=== PATIENT | male | born 1990 | race Caucasian/White ===

== ENCOUNTER 2021-01-15 08:21 | Emergency (ER) | payer BC ==
[~2021-01-15] VITALS: Ht 172.7 cm; Wt 111.0 kg
[2021-01-15 11:33] VITALS: BP 151/101
== END 2021-01-15 11:30 | disposition home or self-care (01) ==
LOC: ER 08:23
DX: T67.5XXA Heat exhaustion, unspecified, initial encounter (principal); R42 Dizziness and giddiness; R06.02 Shortness of breath; R20.0 Anesthesia of skin; X58.XXXA Exposure to other specified factors, initial encounter; Y93.89 Activity, other specified; Y92.89 Other specified places as the place of occurrence of the external cause; Y99.8 Other external cause status
CPT/HCPCS: 93005; 99283